=== PATIENT | male | born 1960 | race Caucasian/White ===

== ENCOUNTER 2020-01-19 11:23 | Inpatient (IN) ==
[2020-01-19 13:44] LABS: ABS Basophils 0.1 10^3/ul (0-0.2); ABS Eosinophils 0.2 10^3/ul (0-0.6); ABS Lymphocytes 1.9 10^3/ul (1.0-4.8); ABS Monocytes 0.5 10^3/ul (0-0.8); Eosinophil % 3.7 %; Hematocrit 45 % (42-52); Hemoglobin 15.5 g/dL (14.0-18.0); Lymphocyte % 34.1 %; Mean Corpuscular HGB Conc 35 g/dL (31-36); Mean Corpuscular Hemoglobin 30 pg (27-31); Mean Corpuscular Volume 86 fL (80-94); Mean Platelet Volume 6.1 fL (7.4-10.4); Platelet Count 389 10^3/uL (150-450); Red Blood Count 5.19 10^6 /uL (4.18-5.48); Red Cell Distribution Width 13 % (10-15); White Blood Count 5.7 10^3/uL (3.5-10.8)
[2020-01-19 13:53] LABS: Albumin 4.3 g/dL (3.2-5.2); Albumin/Globulin Ratio 1.5 (1-3); BUN/Creatinine Ratio 17.3 (8-20); Calcium 9.5 mg/dL (8.6-10.3); EGFR African American 88.8 (>60); EGFR Non-African American 73.4 (>60); Globulin 2.9 g/dL (2-4); Potassium 4.1 mmol/L (3.5-5.0); Total Bilirubin 0.4 mg/dL (0.2-1.0); Total Protein 7.2 g/dL (6.4-8.9)
[2020-01-19 14:01] LABS: Troponin I 0.81 ng/mL (<0.03)
[2020-01-19 14:12] LABS: INR 0.97 (0.82-1.09)
[2020-01-19] MEDS ORDERED: Enoxaparin 100 MG/ML SYR SUBCUT ONE (14:16)
[2020-01-19 15:54] LABS: Troponin I 0.78 ng/mL (<0.03)
[2020-01-19] MEDS ORDERED: Heparin 5000 UNITS/ML 1 mL VIAL IV SCH (17:00)
[2020-01-19 17:38] LABS: Activated Partial Thrombo Time 44.4 seconds (26.0-38.0); INR 1.02 (0.82-1.09)
[2020-01-19 17:44] LABS: EGFR Non-African American 65.3 (>60)
[2020-01-19 17:50] LABS: Troponin I 0.71 ng/mL (<0.03)
[2020-01-20] MEDS: Heparin DRIP 25,000 UNITS BAG 25,000 UNITS/500 ML BAG IV SCH ×2 (02:56→17:16)
[2020-01-20] MEDS ORDERED: NS 0.9% 1000 ml BAG 1,000 ML IV SCH ×2 (05:00→12:15)
[2020-01-20 06:04] LABS: ABS Basophils 0.1 10^3/ul (0-0.2); ABS Eosinophils 0.3 10^3/ul (0-0.6); ABS Lymphocytes 2.4 10^3/ul (1.0-4.8); ABS Monocytes 0.5 10^3/ul (0-0.8); ABS Neutrophils 2.1 10^3/ul (1.5-7.7); Hematocrit 43 % (42-52); Hemoglobin 14.8 g/dL (14.0-18.0); Lymphocyte % 45.2 %; Mean Corpuscular HGB Conc 34 g/dL (31-36); Mean Corpuscular Hemoglobin 30 pg (27-31); Mean Corpuscular Volume 87 fL (80-94); Mean Platelet Volume 6.3 fL (7.4-10.4); Nucleated Red Blood Cells % 0.1; Platelet Count 357 10^3/uL (150-450); Red Blood Count 4.95 10^6 /uL (4.18-5.48); Red Cell Distribution Width 13 % (10-15); White Blood Count 5.3 10^3/uL (3.5-10.8)
[2020-01-20] MEDS ORDERED: Perflutren Lipid Microsphere 3 ML VIAL ONE (07:56)
[2020-01-20] MEDS ORDERED: fentaNYL 100 mcg/2 ml 50 MCG/ML VIAL ONE (10:36)
[2020-01-20] MEDS ORDERED: Iohexol 350 (CONTRAST) 200 ML MDV IV ONE (10:37)
[2020-01-20] MEDS ORDERED: Heparin 1,000 UNIT/ML 10 ml (10,000 UNITS) CATHLAB/DIALYSIS ONE (10:37)
[2020-01-20] MEDS ORDERED: diPHENhydraMINE IV 50 MG/ML 1 ml VIAL (BENADRYL) ONE (10:37)
[2020-01-20] MEDS ORDERED: Heparin 2 UNITS/ML 1000 mls 2,000 ML IV ONE (10:37)
[2020-01-20] MEDS ORDERED: nitroGLYCERIN DRIP 0 MCG/0 ML BTL ONE (10:37)
[2020-01-20] MEDS ORDERED: Midazolam 5 mg/5 ml VIAL 1 mg/ml 5 ml VIAL (5 mg) ONE (10:37)
[2020-01-20] MEDS ORDERED: Lidocaine 1% VIAL 10 MG/ML VIAL ONE (10:37)
[2020-01-20] MEDS ORDERED: VERAPAMIL 2.5 MG/ML 2 ML VIAL ** 5 mg/2 ml ONE (10:37)
[2020-01-20 16:15] VITALS: BP 107/62
== END 2020-01-20 18:36 | disposition short-term general hospital (02) | DRG 191 ==
LOC: MEDTELE 11:23 → ED 11:23 → OBSVTOIN 15:24 → MEDTELE 17:03
PROVIDERS: ADMIT Student in an Organized Health Care Education/Training Program; ATTEND Hospitalist